=== PATIENT | female | born 1970 | race African-American/Black ===

== ENCOUNTER 2020-06-22 11:57 | Emergency (ER) | payer OTHER ==
[~2020-06-22] VITALS: Ht 165.1 cm; Wt 99.0 kg
[2020-06-22] MEDS ORDERED: IBUPROFEN 800MG TABLET PO ONE (12:30)
[2020-06-22] MEDS ORDERED: ACETAMINOPHEN 500MG TABLET PO ONE (12:30)
[2020-06-22 14:58] VITALS: BP 135/82
== END 2020-06-22 14:59 | disposition home or self-care (01) ==
LOC: ER 11:57
DX: M25.571 Pain in right ankle and joints of right foot (principal); F12.10 Cannabis abuse, uncomplicated; Z88.0 Allergy status to penicillin; W10.8XXA Fall (on) (from) other stairs and steps, initial encounter; Y93.89 Activity, other specified; Y92.018 Other place in single-family (private) house as the place of occurrence of the external cause
CPT/HCPCS: 73610; 73630; 99284